=== PATIENT | female | born 1950 | race Caucasian/White ===

== ENCOUNTER → 2016-10-22 | Day surgery (SDC) | payer OTHER ==
[~2016-10-22] VITALS: Ht 165.1 cm; Wt 64.5 kg
[~2016-10-22] MED LIST: ACETAMINOPHEN 325 MG TAB PO PRN; CHLORHEXIDINE GLUCONATE 2 % 1 PACK (2 CLOTHS) TOPICAL PRN; ESTR42.5V VAGINAL; HYALURONIDASE/LIDOCAINE/EPINEPHRINE/BUPIVACAINE 6 ML SYR LEFT EYE ONE; INSULIN HUMAN REGULAR 1,000 UNITS/10 ML VIAL SQ PRN; LACTATED RINGER'S 1000 ML IV PRN; METOPROLOL TARTRATE 25 MG TAB PO PRN; POVIDONE IODINE 5% (ANTISEPSIS KIT) 4 APPLICATIONS EACH NARE PRN; PROPARACAINE HCL 0.5% OPHT SOLN 15 ML BTL LEFT EYE ONE; PROPOFOL 200 MG/20 ML AMP ONE; SODIUM CHLORID 0.9% 500 ML IV PRN; TOBRAMYCIN/DEXAMETHASONE OPTH OINT 3.5 GM TUBE ONE; VITATAB25 PO
[2016-10-22 09:15] VITALS: BP 138/81; PULSE 69; RESP 14; TEMP 97.9; O2SAT 98
[2016-10-22] MEDS: TROPICAMIDE 1% OPHT SOLN 15 ML BTL LEFT EYE SCH ×4 (09:15→09:30)
[2016-10-22] MEDS: PHENYLEPHRINE HCL 10% OPTH SOLN 5 ML BTL LEFT EYE SCH ×4 (09:15→09:30)
[2016-10-22] MEDS: FLURBIPROFEN 0.03% OPHT SOLN 2.5 ML BTL LEFT EYE SCH ×4 (09:15→09:30)
[2016-10-22] MEDS: CYCLOPENTOLATE HCL 1% OPHT SOLN 2 ML BTL LEFT EYE SCH ×4 (09:15→09:30)
[2016-10-22 09:20] VITALS: PULSE 56
[2016-10-22 09:40] VITALS: PULSE 76
[2016-10-22 11:15] VITALS: BP 114/65; PULSE 54; RESP 16; TEMP 97.6; O2SAT 97
--- NOTE | 2016-10-22 11:34 | MP ---
cc: GONZALEZ FOX M.D. DATE OF SURGERY: 10/22/2016 [facility] #[id number] PREOPERATIVE DIAGNOSIS Visually significant cataract, left eye. POSTOPERATIVE DIAGNOSIS Visually significant cataract, left eye. OPERATION Phacoemulsification with posterior chamber lens implantation, left eye. SURGEON Gonzalez Fox MD ANESTHESIA Retrobulbar with MAC. COMPLICATIONS None. PROCEDURE After informed consent was obtained, the patient was brought into the operative suite and placed on appropriate monitors by the Anesthesia Service. The patient had received a prior retrobulbar injection of local anesthetic by the Anesthesia Service in the holding area. The patient's operative eye was then prepped and draped in the usual sterile fashion. A wire lid speculum was placed. A paracentesis incision was made in the peripheral cornea with a 1 mm manjula keratome. The anterior chamber was filled with viscoelastic. The anterior chamber was then entered through a stepped, clear corneal incision using a sharp 3 mm manjula keratome. A circular tear capsulorrhexis was then made with a bent needle cystitome. Following hydrodissection of the lens nucleus with balanced saline, phaco-emulsification of the nucleus was performed using a modified chopping technique. The remaining cortex was removed with irrigation/aspiration. The prior two procedures were both performed using the handpieces of the [employer] phaco unit. The capsular bag was then filled with viscoelastic. The intraocular lens was then injected into the capsular bag and positioned. The type of intraocular lens and its power can be found elsewhere in this chart. The remaining viscoelastic was then removed from the anterior chamber with the IA handpiece. The anterior chamber was reformed with balanced saline. The wound was then closed securely with stromal hydration. It was found to be watertight to an intraocular pressure of at least 30 mmHg by palpation. A small amount of balanced salt solution was then removed through the paracentesis site and the intraocular pressure at the end of the case was approximately 20 by palpation. All drapes were then removed. TobraDex ointment was then placed in the eye, which was closed beneath a semi-pressure patch dressing. The patient tolerated this procedure well and left the operating room awake and alert. The patient is to follow-up in my office in the morning. ADDENDUM Due to the presence of a poorly dilating pupil, with traumatic posterior synechiae, a Malyugin Ring was used to promote and maintain adequate pupillary mydriasis for phacoemulsification and lens implantation. Additionally, once the clear corneal incisions were sealed watertight, a 6 mm limbal relaxing incision was made with a 600 micron manjula blade, centered around the inferior 70 degree meridian. Gonzalez MD NAKUL Reyes/ROAS ELENA /10:54 AM /11:22 AM
== END | disposition home or self-care (01) ==
LOC: PHSDC 08:37
PROVIDERS: ATTEND Optometrist Occupational Vision
DX: H26.102 Unspecified traumatic cataract, left eye (principal); S05.92XA Unspecified injury of left eye and orbit, initial encounter; H21.542 Posterior synechiae (iris), left eye; H25.11 Age-related nuclear cataract, right eye; X58.XXXA Exposure to other specified factors, initial encounter; E78.5 Hyperlipidemia, unspecified; E78.1 Pure hyperglyceridemia; M47.812 Spondylosis without myelopathy or radiculopathy, cervical region; M17.10 Unilateral primary osteoarthritis, unspecified knee; M85.80 Other specified disorders of bone density and structure, unspecified site; K21.9 Gastro-esophageal reflux disease without esophagitis; E55.9 Vitamin D deficiency, unspecified; E66.9 Obesity, unspecified; Z68.23 Body mass index [BMI] 23.0-23.9, adult; Z87.891 Personal history of nicotine dependence; Z79.52 Long term (current) use of systemic steroids; Z79.899 Other long term (current) drug therapy
CPT/HCPCS: 00142; 66982; J7040; V2632

== ENCOUNTER → 2017-02-18 | Outpatient (CLI) | payer OTHER ==
[~2017-02-18] MED LIST changes: -ACETAMINOPHEN 325 MG TAB PO PRN; -CHLORHEXIDINE GLUCONATE 2 % 1 PACK (2 CLOTHS) TOPICAL PRN; -HYALURONIDASE/LIDOCAINE/EPINEPHRINE/BUPIVACAINE 6 ML SYR LEFT EYE ONE; -INSULIN HUMAN REGULAR 1,000 UNITS/10 ML VIAL SQ PRN; -LACTATED RINGER'S 1000 ML IV PRN; -METOPROLOL TARTRATE 25 MG TAB PO PRN; -POVIDONE IODINE 5% (ANTISEPSIS KIT) 4 APPLICATIONS EACH NARE PRN; -PROPARACAINE HCL 0.5% OPHT SOLN 15 ML BTL LEFT EYE ONE; -PROPOFOL 200 MG/20 ML AMP ONE; -SODIUM CHLORID 0.9% 500 ML IV PRN; -TOBRAMYCIN/DEXAMETHASONE OPTH OINT 3.5 GM TUBE ONE; -VITATAB25 PO
[2017-02-18 10:56] LABS: BASOPHIL # 0.1 TH/MM3 (0-0.2); EOSINOPHIL # 0.3 TH/MM3 (0-0.4); EOSINOPHIL % 5.2 % (0.0-4.0); HEMATOCRIT 43.2 % (35.0-46.0); HEMO FLAGS DIFF FINAL; LYMPH % 45.1 % (9.0-44.0); LYMPHOCYTE # 2.4 TH/MM3 (1.0-4.8); MEAN CELL VOLUME 94.7 FL (80.0-100.0); MEAN CORPUSCULAR HGB CONC 34.9 % (32.0-36.0); MONO % 10.7 % (0.0-8.0); PLATELET COUNT 248 TH/MM3 (150-450); RED BLOOD COUNT 4.57 MIL/MM3 (4.00-5.30); RED CELL DISTRIBUTION WIDTH 12.9 % (11.6-17.2); WHITE BLOOD COUNT 5.3 TH/MM3 (4.0-11.0)
[2017-02-18 11:12] LABS: BLOOD, URINE NEG (NEG); COMMENT (UR) CULT NOT INDICATED; CULTURE IF INDICATED CULT NOT INDICATED; GLUCOSE,URINE NEG (NEG); KETONE, URINE NEG (NEG); MUCUS URINE FEW /lpf (OCC); NITRITE,URINE NEG (NEG); PH, URINE 5.5 (5.0-8.5); SQUAMOUS EPITHELIAL CELL URINE 2 /hpf (0-5); URINE COLOR YELLOW (YELLW/STRAW)
[2017-02-18 11:18] LABS: ANION GAP 7 MEQ/L (5-15); AST (GOT) 16 U/L (15-37); BICARBONATE 30.2 MEQ/L (21.0-32.0); BLOOD UREA NITROGEN 10 MG/DL (7-18); CHLORIDE 103 MEQ/L (98-107); GLOMERULAR FILTRATION RATE 97 ML/MIN (>89); GLUCOSE,FASTING 53 MG/DL (74-99); POTASSIUM 4.2 MEQ/L (3.5-5.1); SODIUM (NA) 140 MEQ/L (136-145)
[2017-02-18 11:22] LABS: ALKALINE PHOSPHATASE 108 U/L (45-117); ALT (GPT) 147 U/L (10-53); TOTAL BILIRUBIN ADULT 0.5 MG/DL (0.2-1.0)
--- NOTE | 2017-02-19 16:04 | EKG ---
Date Performed: 02/18/2017 Time Performed: 10:04:14 PTAGE: 66 years EKG: SINUS BRADYCARDIA POSSIBLE LEFT ATRIAL ENLARGEMENT LOW QRS VOLTAGE IN PRECORDIAL LEADS BORD PRABHA ECG NO PREVIOUS TRACING DOCTOR: Lyudmila Mcbride Interpretating Date/Time 02/19/2017 16:03:49
== END ==
LOC: CPRE 09:41
PROVIDERS: ATTEND Obstetrics & Gynecology Gynecology
DX: Z01.812 Encounter for preprocedural laboratory examination (principal); Z01.810 Encounter for preprocedural cardiovascular examination; N39.0 Urinary tract infection, site not specified
CPT/HCPCS: 36415; 80053; 81001; 85025; 93005

== ENCOUNTER → 2017-02-24 | Day surgery (SDC) | payer OTHER ==
--- NOTE | 2017-02-18 10:20 | MH ---
cc: [employer]List DATE OF ADMISSION: 02/24/2017 DATE OF : 1950 ADMITTING DIAGNOSIS: Scheduled for admission on February 24 for trans obturator sling HISTORY OF PRESENT ILLNESS: Patient is a 66-year-old white female 2, para 2 who is having issues with stress urinary incontinence. Surgical history is notable for a bladder and urethral injury approximately 30 years ago during a vaginal hysterectomy. She has had no issues with fistula she is having stress incontinence. She has had a urodynamic study that showed total capacity of 500 and a leak point 250. She had no significant postvoid residual. No detrusor instability. No issues with obstruction. She has no significant hypermobile ability on clinical exam. She was apprised of up options and has decided to proceed with a suburethral sling. PAST MEDICAL HISTORY: The patient's medical history is negative for heart, lung, liver disease, hypertension, diabetes, stroke. PAST SURGICAL HISTORY Laparoscopically assisted vaginal hysterectomy with bladder injury. MEDICATIONS None ALLERGIES DEMEROL CAUSES NAUSEA. SOCIAL HISTORY: 10 pack-year history quit 17 years ago with good social support. OBSTETRICAL HISTORY Two vaginal deliveries largest baby 9 pounds FAMILY HISTORY Noncontributory. REVIEW OF SYSTEMS The review of systems is as above. No chest pain, orthopnea, PND. No nausea or chills. No vaginal bleeding or discharge issues with incontinence as noted above. PHYSICAL EXAMINATION: IN GENERAL/ VITAL SIGNS: On exam she is afebrile. Vital signs stable blood pressure is 120/70, height 5.4, weight 150, BMI is 25.7. Patient is alert and oriented in stress no sign of cognitive dysfunction depression. HEAD, EYES, EARS, NOSE, AND THROAT: Within normal limits. NECK: Supple. No Jugular venous distention CHEST: Clear. HEART: Regular rate and rhythm. ABDOMEN: The abdomen is soft nontender, no hepatosplenomegaly. No costovertebral angle tenderness. PELVIC EXAMINATION: Exam will be detailed under anesthesia with in the office we note a pop Q score Aa -3, Ap is -3. Genital hiatus is 4. No significant hypermobility no postvoid residual. Levator muscle strength is normal. Further exam under anesthesia. EXTREMITIES: Normal skin, without rashes. NEUROLOGIC: Nonfocal. No DVT signs. 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 We discussed at length options for management treatment. She is aware of the risks returns procedure including damage to surrounding organs, bleeding, infection, failure of repair, failure of procedure to stop incontinence also possibility of prolonged catheterization and retention of discussed. The patient is at increased risk for injury to the bladder urethra as result of her previous surgery and she is aware that and elects to proceed. This point we anticipate outpatient procedure. She will use DVT prophylaxis with sequential compression device and a Ancef 2 grams for antibiotic prophylaxis. MD WILLA Sam/dewayne /9:54 AM /10:02 AM
[~2017-02-24] VITALS: Ht 162.6 cm; Wt 74.8 kg
[~2017-02-24] MED LIST changes: +*PROMETHAZINE 25 MG/ML VIAL PERIprocedural use ONLY ONE; +ACETAMINOPHEN 1000 MG/100 ML 100 ML IV ONE; +CHLORHEXIDINE GLUCONATE 2 % 1 PACK (2 CLOTHS) TOPICAL PRN; +DEXAMETHASONE SOD PHOS 4 MG/ML VIAL IV ONE; +DO NOT ADM ANY ANTICOAGULANT DRUGS PRN; +GLYCOPYRROLATE 1 MG/5 ML SYRINGE IV PUSH ONE; +KETOROLAC TROMETHAMINE 30 MG/ML (IVP) VIAL IV PUSH ONE; +KETOROLAC TROMETHAMINE 60 MG/2 ML (IM) VIAL IM PRN; +LACTATED RINGER'S 1000 ML INJ 1,000 ML IV ONE; +LACTATED RINGER'S 1000 ML IV PRN; +LIDOCAINE 1%/EPINEPHrine 1:100,000 SOLN 20 ML VIAL ONE; +LIDOCAINE HCL 1% PF 5 ML SYRINGE OTHER ONE; +METOPROLOL TARTRATE 25 MG TAB PO PRN; +MIDAZOLAM HCL 2 MG/2 ML VIAL IV ONE; +NEOSTIGMINE 5 MG/5 ML SYRINGE IV PUSH ONE; +ONDANSETRON HCL 4 MG/2 ML VIAL IV PUSH ONE; +ONDANSETRON HCL 4 MG/2 ML VIAL IV PUSH PRN; +POVIDONE IODINE 5% (ANTISEPSIS KIT) 4 APPLICATIONS EACH NARE PRN; +PROPOFOL 200 MG/20 ML AMP IV ONE; +ROCURONIUM INJ 50 MG/5 ML SYRINGE IV PUSH ONE; +SODIUM CHLORID 0.9% 500 ML IV PRN; +ceFAZolin 2 GM PREMIX 50 ML IV SCH; +ePHEDrine/NS 25 MG/5 ML SYR IV ONE; +traMADol HCL 50 MG TAB PO PRN
--- NOTE | 2017-02-24 09:42 | MP ---
cc: KARTHIK BAUMANN MD DATE OF SURGERY 02/24/2017 PREOPERATIVE DIAGNOSES Stress urinary incontinence, code N39.3. POSTOPERATIVE DIAGNOSES Stress urinary incontinence, code N39.3 with a midline cystocele code N81.11. PROCEDURE 1. Transobturator sling code 22786. 2. Anterior repair, code 30167. 3. 22 modifier for difficulty in light of complex scarring and need for dissection as a result of prior surgery. SURGEON Karthik Baumann MD ANESTHESIA General endotracheal BLOOD LOSS 75 cc URINE OUTPUT 300 cc prior to the correctional case records supervisor [place] staff x2 FLUIDS 1000 cc of crystalloid FINDINGS External genitalia normal POP-Q score: Aa is -1, Ap is -1. Point C is -8. Perineal body is -8, total vaginal length is 8, genital hiatus is 4. Perineal body is 4. Following repair Aa is -3. The remainder of pop Q score unchanged. Cystoscopy performed pre and post procedure was unremarkable. Ureteral orifices patent x2. Dome and base bladder normal, urethra normal. SPECIMENS None COMPLICATIONS None DISPOSITION To Recovery Room stable. Needle and sponge counts correct. DRAINS Wallace catheter ANTIBIOTIC PROPHYLAXIS Ancef 2 grams, DVT prophylaxis sequential compression device. JUSTIFICATION FOR A 22 MODIFIER A 22 modifier complex dissection and additional length of time to mobilize urethra as result of prior surgery for a bladder injury approximately 20 years ago. SUMMARY OF INDICATION FOR THE PROCEDURE The patient had issues with stress urinary continence. She had a urodynamic study that showed no detrusor instability and had leak point pressure at 50% capacity. The patient had been apprised of the risks, benefits and alternatives. She had a history of prior bladder injury during a hysterectomy several decades ago. PROCEDURE NOTE The patient was taken to the operating room theater, identified, prepped and draped in a fashion appropriate for the planned procedure. She was in the dorsal lithotomy position with careful attention paid to placement of legs in stirrups to avoid undue stress to sensitive neurovascular structures. The above findings were noted. Neurovascular integrity documented. In light of the patient's prior history of bladder and urethral injury, cystoscopy was performed prior to initiation of the procedure. Above findings were noted. There were no abnormalities of bladder or urethra, dome or base of bladder noted. The patient had methylene blue instilled into the bladder, obturator foramen were marked and infiltrated with epinephrine/lidocaine solution. The vaginal mucosa was infiltrated with epinephrine/lidocaine solution. A midline incision was made. It was here that we encountered significant scarring as result mostly likely from a prior surgery. With meticulous dissection, we were able to mobilize the urethra and identified the mid urethral portion. A C-hook was used in a lateral to medial position on each side, transobturator tape was placed. Horizontally apposed scalpel handle was used to tension the tape. Cystoscopy was performed and anterior repair was performed in standard fashion with delayed absorbable suture. The vaginal mucosa was closed and hemostasis was augmented with a hemostatic matrix. Cystoscopy was performed again and above findings noted. No damage to the urethra or bladder The patient tolerated the procedure well and returned to the recovery room in stable condition. She will undergo a postoperative voiding trial and if meets criteria will be discharged home this afternoon. MD WILLA Sam/NICOLÁS /9:08 AM /9:21 AM
[2017-02-24 11:50] VITALS: BP 119/66; PULSE 64; RESP 16; TEMP 98; O2SAT 98
== END | disposition home or self-care (01) ==
LOC: HSDC 06:01
PROVIDERS: ATTEND Obstetrics & Gynecology Gynecology
DX: N39.3 Stress incontinence (female) (male) (principal); N81.11 Cystocele, midline
CPT/HCPCS: 00860; 57240; 57288; C1771; J0131; J0690; J1100; J1885; J2250; J2405; J2550; J2710; J3010; J7120